=== PATIENT | male | born 1995 | race African-American/Black ===

== ENCOUNTER 2016-09-12 21:00 | Inpatient (IN) ==
[2016-09-12] MEDS ORDERED: ALUM/MAG/SIMETH/LIDO VISC 1:1 30 ML BOTTLE PO STA (23:25)
[2016-09-12] MEDS ORDERED: SODIUM CHLORIDE 0.9% 1,000 ML IV STA (23:25)
[2016-09-12] MEDS ORDERED: PANTOPRAZOLE 40 MG VIAL IV STA (23:25)
[2016-09-12] MEDS ORDERED: ONDANSETRON 4 MG/2 ML VIAL IV STA (23:25)
[2016-09-12 23:37] LABS: Basophils % 0.3 % (0.0-0.8); Hematocrit 48.9 VOL% (42.0-52.0); Immature Granulocytes % 0.8 %; Immature Granulocytes Absolute 0.12 #; Lymphocytes # 1.5 10*3/uL (1.4-4.0); Lymphocytes % 9.4 % (21.2-54.2); Mean Corpuscular HGB Conc 32.7 GM/DL (32-36); Mean Corpuscular Hemoglobin 27 PG (27-34); Mean Platelet Volume 12.3 FL (9.6-12.0); Monocytes # 0.6 10*3/uL (0.11-0.8); Monocytes % 3.8 % (1.7-12.7); Neutrophils # 13.7 10*3/uL (1.4-7.4); Neutrophils % 85.7 % (38.7-73.9); Platelet Count 184 T/CUMM (130-400); Red Blood Count 6.04 MC/CUMM (3.8-5.5); Red Cell Distribution Width 14.6 % (9.3-17.3); White Blood Count 15.9 T/CUMM (4-12)
[2016-09-12 23:50] LABS: Albumin 4.8 G/DL (3.4-5.0); Bilirubin,Total 0.9 MG/DL (0.2-1.0); Calcium 9.7 MG/DL (8.5-10.1); Osmolality,Calculated 280.3 MOS/KG (273-304); Potassium 3.9 MMOL/L (3.5-5.1); Total Protein 8.5 G/DL (6.4-8.3)
[2016-09-12] MEDS ORDERED: ALUM/MAG/SIMETH/LIDO VISC 1:1 30 ML BOTTLE PO ONE (23:55)
[2016-09-12] MEDS ORDERED: PANTOPRAZOLE 40 MG VIAL IV ONE (23:55)
[2016-09-12] MEDS ORDERED: ONDANSETRON 4 MG/2 ML VIAL ONE (23:55)
--- NOTE | 2016-09-13 00:18 | Emergency Department Note ---
Alan Mckee Brittany, am scribing for, and in the presence of, Marek Trent MD 23:34. Twan Mckee Charles R, MD, personally performed the services described in this documentation, ascribed by Melida Phillips in my presence, and it is both accurate and complete . Arrival - Arrival Chief Complaint: Nausea/Vomiting/Diarrhea Stated Complaint: [facility] ED Nursing Triage Note: c/o left side ABD pain and N/V/D since this morning. Mode of Arrival: Ambulatory Limitations: No Limitations Source: Patient, RN Notes Reviewed Time Seen by Provider: 09/12/16 22:17 - History of Present Illness HPI Narrative: Patient is a 21 y/o black male presenting to the ED with c/o LLQ abdominal pain with an onset of today. He notes having some associated N/V/D with this. He denies having an intake of a certain food that could've contributed to current symptoms. Patient denies having any associated hematochezia, melena, or hematemesis. He does report having some fever with this. He notes a history of Appendectomy and Cholecystectomy in 2013. He reports that abdominal pain at times radiates into his back and into his groin. He has no other complaint/pain in the ED at this time. Allergies/Adverse Reactions: Allergies Allergy/AdvReac Type Severity Reaction Status Date / Time No Known Allergies Allergy Verified 09/12/16 21:06 Review of System - Review of System 12 point system: reviewed and no additional remarkable complaints except as stated - Review of System Constitutional: Present: fever Gastrointestinal: Present: abdominal pain, nausea, vomiting, diarrhea Musculoskeletal: Present: back pain Medical,Surgical,& Family Hx - Medical History Cardio: No history of: Hypertension (Pt denies on 01/13/16) Neurology: No history of: Seizures Respiratory: No history of: Asthma Renal: No history of: Renal (Kidney) Cancer, Dialysis, Renal Failure, Renal Problems Genitourinary: History of: Kidney Stones (3 years ago) No history of: Bladder Problem, Prostate Problems, Recurring Urinary Tract Infections, Genitourinary Cancer, Problems Gastrointestinal: No history of: GERD Musculoskeletal: No history of: Amputation Hematology: No history of: Blood Transfusion Reaction - Surgical History Cardiac Surgeries: Patient Denies: Cardiac Catheterization Thoracic Surgeries: Patient denies;: Kidney (Renal Surgery), Lithotripsy, Nephrectomy, Organ Transplant, Lobectomy Neurologic Surgeries: Patient denies: Neurologic Surgery HEENT Surgeries: Patient denies: Thyroid Surgery Abdominal Surgeries: Surgical HX of: Abdominal Surgery (gallbladder), Appendectomy (2014), Cholecystectomy (2015), EGD (2015) Reproductive Surgeries: Patient denies;: Cystoscopy, Genitourinary Surgery, Prostate Surgery - Family History Family History: Reports;: Family Diabetes (great grandmother), Family Hypertension (a lot), Family Stroke (aunt, grandmother) Denies;: Family Anesthesia Reaction, Family Cancer, Family Heart Disease, Family Psychiatric Problems - Social History Smoking Status: Current every day smoker Frequency of Alcohol Use: None Type of Drug Use: None Exam Vital Signs: Vital Signs Temperature 98.2 F 09/12/16 22:18 Pulse Rate 94 H 09/12/16 22:18 Respiratory Rate 16 09/12/16 22:18 Blood Pressure 152/118 09/12/16 22:18 O2 Sat by Pulse Oximetry 98 09/12/16 21:02 - General General appearance: alert, in no apparent distress - Head Head exam: Present: atraumatic, normocephalic, normal inspection - Eye Eye exam: Present: normal appearance, PERRL, EOMI - ENT ENT exam: Present: normal exam, normal oropharynx - Neck Neck exam: Present: normal inspection, full ROM, trachea midline - Chest Chest inspection: Present: normal inspection, symmetric chest wall rise - Respiratory Respiratory exam: Present: normal lung sounds bilaterally. Absent: rales, rhonchi, wheezes - Cardiovascular Cardiovascular exam: Present: regular rate, normal rhythm, normal heart sounds. Absent: murmur, rubs, gallop - Abdominal Exam Abdominal exam: Present: soft, tenderness (LLQ), hyperactive bowel sounds. Absent: distention, normal bowel sounds - Extremities Exam Extremities exam: Present: normal inspection - Back Exam Back exam: Present: CVA tenderness (L). Absent: normal inspection - Neurological Exam Neurological exam: Present: alert, oriented X3, CN II-XII intact. Absent: motor sensory deficit - Psychiatric Psychiatric exam: Present: normal affect - Skin Skin exam: Present: warm. Absent: dry (clammy) Course - Reevaluation(s) Reevaluation #1: Patient has had some improvement after IV fluids and medication but still has some pain in his left lower quadrant CT shows colitis Time: :07 - Consultations Consultation #1: Hospitalist will admit patient Time: 01:07 Results - Labs CBC & BMP: 09/12/16 21:58 09/12/16 21:58 Lab Results: I have reviewed the patients labs Labs: Laboratory Tests 09/12/16 09/12/16 21:58 21:58 WBC 15.9 H RBC 6.04 H Hgb 16.0 Hct 48.9 MCV 81.0 L Plt Count 184 MPV 12.3 H Neut % (Auto) 85.7 H Lymph % (Auto) 9.4 L Neut # (Auto) 13.7 H Sodium 141 Potassium 3.9 Chloride 107 Carbon Dioxide 22 Anion Gap 15.9 H BUN 10 Creatinine 1.10 Glucose 116 H Total Protein 8.5 H Globulin 3.7 H Lipase 67.0 L Laboratory Tests 09/12/16 21:58 Urine Color Yellow Urine Appearance Slightly hazy Urine pH 6.0 Ur Specific [place] 1.028 Urine Protein 100 Urine Glucose (UA) Negative Urine Ketones 80 Urine Blood Negative Urine Nitrate Negative Urine Bilirubin Negative Urine Urobilinogen < 2.0 H Urine Leukocytes Negative Urine RBC 8 Urine WBC 3 Ur Squamous Epith Cells Occasional Calcium Oxalate Crystal Occasional Urine Bacteria Occasional Urine Mucus Many Disposition Clinical Impression: Nausea & vomiting, Abdominal pain, Dehydration, Gastroenteritis, Appetite loss , Leukocytosis, Colitis Case discussed with: patient, patient's family Disposition: Still a Patient Condition: Stable Time of Disposition: 01:08
[2016-09-13 00:43] LABS: Apearance,Urine Slightly Hazy (Clear); Bacteria,Urine Occasional /HPF (Few); Bilirubin,Urine Negative (Negative); Blood, Urine Negative (Negative); Calcium Oxalate Crystals,Urine Occasional /HPF (Few); Glucose,Urine (UA) Negative (Negative); Ketones,Urine 80 mg/dL (Negative); Mucus,Urine Many /LPF (Occasional); Nitrite,Urine Negative (Negative); Protein,Urine 100 MG/DL; RBC,Urine 8 /HPF (0-4); Squamous Epithelial Cell,Urine Occasional /HPF (0-10); Urine Color Yellow (Yellow); Urine Specific Gravity 1.028 (1.001-1.035); Urine Urobilinogen < 2.0 EU/DL (0.2-1.0); WBC,Urine 3 /HPF (0-6)
[2016-09-13] MEDS ORDERED: ONDANSETRON 4 MG/2 ML VIAL ONE (01:05)
[2016-09-13] MEDS ORDERED: HYDROmorphone 2 MG/1 ML VIAL ONE (01:06)
[2016-09-13] MEDS ORDERED: metroNIDAZOLE INJ 500 MG in PREMIX 1 EACH IV STA (01:09)
[2016-09-13] MEDS ORDERED: CIPROFLOXACIN INJ 400 MG in PREMIX 1 EACH IV STA (01:09)
[2016-09-13] MEDS ORDERED: HYDROmorphone 2 MG/1 ML VIAL IV STA (01:15)
[2016-09-13] MEDS ORDERED: ONDANSETRON 4 MG/2 ML VIAL IV STA (01:20)
[2016-09-13] MEDS ORDERED: metroNIDAZOLE 500 MG/100 ML PREMIX IV ONE (01:59)
[2016-09-13] MEDS ORDERED: CIPROFLOXACIN 400 MG/200 ML PREMIX IV ONE (01:59)
[2016-09-13] MEDS ORDERED: ACETAMINOPHEN 325 MG TABLET PO PRN (02:23)
--- NOTE | 2016-09-13 02:30 | Hospitalist History & Physical ---
Assessment and Plan - Time spent with patient Time spent discussing smoking cessation with patient: 3 to 10 minutes (1) Acute colitis Status: Acute Current Visit: Yes (2) Intractable nausea and vomiting Status: Acute Current Visit: Yes (3) Family history of Crohn's disease Status: Acute Assessment and plan: Plan: Admit for IV antibiotics-Cipro/Flagyl Obtain blood cultures GI consultation, will need colonoscopy with biopsy at some point Supportive care for pain, nausea, fever Current Visit: Yes History of Present Illness Chief complaint: Acute onset of left-sided abdominal pain, fever, intractable n/ v History of present illness: Mr. Sigala is a 21 year old male with no chronic medical problems who began having intractable nausea vomiting with left-sided abdominal pain earlier this afternoon. He rates it an 8 out of 10 at worst, nonradiating, relieved partially with pain medication in the ER. He states he had a normal bowel movement today, no blood. He did have fever around 101-102 at home, chills and sweats. He denies chest pain or shortness of breath. He does not take any home medications. He has had a cholecystectomy and appendectomy in the past. He also reports a strong family history of Crohn's disease, including his brother and father. His symptoms are constant and severe. Allergies Allergy/AdvReac Type Severity Reaction Status Date / Time No Known Allergies Allergy Verified 09/12/16 21:06 Medical,Surgical,& Family Hx - Medical History Cardio: No history of: Hypertension (Pt denies on 01/13/16) Neurology: No history of: Seizures Respiratory: No history of: Asthma Renal: No history of: Renal (Kidney) Cancer, Dialysis, Renal Failure, Renal Problems Genitourinary: History of: Kidney Stones (3 years ago) No history of: Bladder Problem, Prostate Problems, Recurring Urinary Tract Infections, Genitourinary Cancer, Problems Gastrointestinal: No history of: GERD Musculoskeletal: No history of: Amputation Hematology: No history of: Blood Transfusion Reaction - Surgical History Cardiac Surgeries: Patient Denies: Cardiac Catheterization Thoracic Surgeries: Patient denies;: Kidney (Renal Surgery), Lithotripsy, Nephrectomy, Organ Transplant, Lobectomy Neurologic Surgeries: Patient denies: Neurologic Surgery HEENT Surgeries: Patient denies: Thyroid Surgery Abdominal Surgeries: Surgical HX of: Abdominal Surgery (gallbladder), Appendectomy (2013), Cholecystectomy (2015), EGD (2015) Reproductive Surgeries: Patient denies;: Cystoscopy, Genitourinary Surgery, Prostate Surgery - Family History Family History: Reports;: Family Diabetes (great grandmother), Family Hypertension (a lot), Family Stroke (aunt, grandmother) Denies;: Family Anesthesia Reaction, Family Cancer, Family Heart Disease, Family Psychiatric Problems - Social History Smoking Status: Current every day smoker Have you smoked in the last 12 months: Yes Time spent discussing smoking cessation with patient: 3 to 10 minutes Frequency of Alcohol Use: None Type of Drug Use: None Marital Status: Unknown Functional capacity: independent ambulation Review of systems: A 12 point review of systems is negative except as specified in the HPI Exam - Constitutional Vitals: Period Temp Pulse Resp BP Sys/Milian Pulse Ox Last 24 Hr 98.2 F-98.2 F 94-94 16-16 152-152/118-118 98 Exam: EXAM: CONSTITUTIONAL: non toxic, NAD HEENT: NC, AT, OP benign, HOLA, EOMI CV: RRR no m/g/r RESP: clear B/L, no w/r/r GI: abd soft, + left-sided tenderness to palpation, no rebound, ND, +bowel sounds INTEGUMENTARY: no lesions or rash EXTREMITIES: no c/c/e NEURO: no focal deficits PSYCH: unremarkable, A/O x3 Results - Labs CBC & BMP: 09/12/16 21:58 09/12/16 21:58 Lab Results: I have reviewed the past 24 hour labs - Diagnostic Findings Procedure: CT Abdomen and Pelvis: image reviewed by me, report reviewed by me
[2016-09-13] MEDS: SODIUM CHLORIDE 0.9% 1,000 ML IV SCH ×2 (03:45→14:04)
[2016-09-13] MEDS ORDERED: PNEUMOCOCCAL VACCINE (23 VALENT) 0.5 ML VIAL IM ONE (04:21)
[2016-09-13] MEDS: MORPHINE 2 MG/1 ML SYRINGE IV PRN ×2 (06:04→20:48)
--- NOTE | 2016-09-13 07:05 | CT Report ---
CT of the abdomen and pelvis without intravenous or oral contrast. Indication: Generalized abdominal pain, nausea, and vomiting. Axial images were obtained with sagittal and coronal reconstructions. There is a preliminary report from [facility]. There is a comparison study from January 13, 2016. The heart is normal in size. The lung bases are clear. The liver is normal in size and density. The gallbladder has been removed. There is no biliary ductal dilatation. There is a 3 mm calculus at the midpole of the right kidney. No hydronephrosis. The urinary bladder is collapsed. No ureteral calculi are seen. The spleen is normal in size. There is no pancreatic enlargement. There is no free air or free fluid present within the peritoneal cavity. There is a suture line present at the cecum, not seen on the previous study. The appendix is not discretely identified. The bowel is not dilated. There is no bowel wall thickening. There is no free air or free fluid. There is no adenopathy. Impression: Right nephrolithiasis. No hydronephrosis. The CT exam was performed using one or more of the following dose reduction techniques: Automated exposure control, adjustment of the mA and/or kV according to patient size, or use of iterative reconstruction technique. PROCEDURE INTERPRETED AT [facility] DEPARTMENT OF RADIOLOGY Final Report Signed by: Dr. Blossom Rivas
[2016-09-13 07:27] LABS: Basophils % 0.2 % (0.0-0.8); Hematocrit 38.7 VOL% (42.0-52.0); Immature Granulocytes % 0.5 %; Immature Granulocytes Absolute 0.06 #; Lymphocytes # 1.6 10*3/uL (1.4-4.0); Lymphocytes % 12.1 % (21.2-54.2); Mean Corpuscular HGB Conc 32.6 GM/DL (32-36); Mean Corpuscular Hemoglobin 27 PG (27-34); Mean Platelet Volume 12.7 FL (9.6-12.0); Monocytes # 0.9 10*3/uL (0.11-0.8); Monocytes % 6.5 % (1.7-12.7); Neutrophils # 10.7 10*3/uL (1.4-7.4); Neutrophils % 80.7 % (38.7-73.9); Platelet Count 164 T/CUMM (130-400); Red Cell Distribution Width 14.5 % (9.3-17.3); White Blood Count 13.3 T/CUMM (4-12)
[2016-09-13 07:30] LABS: Hemoglobin 12.6 GM/DL (14.0-18.0); Red Blood Count 4.72 MC/CUMM (3.8-5.5)
--- NOTE | 2016-09-13 07:46 | XRay Report ---
Portable chest. Indication: Upper abdominal pain. Comparison: August 10, 2015. The heart and mediastinal contours are unremarkable. The pulmonary vasculature is normal. There is no consolidation, pneumothorax, or pleural effusion. The osseous structures are unremarkable. Impression: No abnormality is seen. PROCEDURE INTERPRETED AT [facility] DEPARTMENT OF RADIOLOGY Final Report Signed by: Dr. Blossom Rivas
[2016-09-13 07:49] LABS: Albumin 3.7 G/DL (3.4-5.0); Bilirubin,Total 0.7 MG/DL (0.2-1.0); Calcium 8.3 MG/DL (8.5-10.1); Magnesium 1.9 MG/DL (1.8-2.4); Osmolality,Calculated 277.4 MOS/KG (273-304); Total Protein 6.6 G/DL (6.4-8.3)
--- NOTE | 2016-09-13 08:14 | XRay Report ---
Two-view abdomen. Indication: Generalized abdominal pain. The heart is normal in size. The lung bases are clear. No free air. Surgical clips are present in the right upper quadrant. No intra-abdominal organomegaly. No abnormal calcifications. Very little bowel gas but the pattern is normal. The osseous structures are unremarkable. Impression: No acute abnormality. PROCEDURE INTERPRETED AT [facility] DEPARTMENT OF RADIOLOGY Final Report Signed by: Dr. Blossom Rivas
[2016-09-13] MEDS ORDERED: ENOXAPARIN 40 MG/0.4 ML SYRINGE SUBCUT SCH (09:00)
[2016-09-13] MEDS: metroNIDAZOLE INJ 500 MG in PREMIX 1 EACH IV SCH ×2 (09:27→18:55)
[2016-09-13] MEDS: CIPROFLOXACIN INJ 400 MG in PREMIX 1 EACH IV SCH (14:05)
--- NOTE | 2016-09-13 17:03 | Gastrointestinal Consult Note ---
Assessment and Plan (1) Left lower quadrant pain Status: Acute Assessment and plan: This patient may have a gastroenteritis versus colitis possibly associated with food poisoning, his white blood cell count is certainly elevated at 15.9. He has been placed on antibiotics which seemed to have helped a great deal and previously was demonstrating elevated temperature to 101/102 at home. While this might be food poisoning the patient has such a strong family history of Crohn's disease and is presenting at a relatively young age he would like to be ruled out for this before he goes home. I think it is reasonable to look at his colon and see if he is manifesting any evidence of Crohn's disease although I did point out to him this usually involves the right lower quadrant of the left lower quadrant. Crohn's disease can affect to in any part of the GI tract. It is reassuring the CT scan does not show inflammation in the TI, indeed it appears unremarkable for involvement of the colon as well. Current Visit: Yes (2) Nausea vomiting and diarrhea Status: Acute Assessment and plan: This may represent again food poisoning or gastroenteritis. I think be helpful to rule out Crohn's disease before the patient goes home considering his strong family history of same in his brother and his father, especially given his youth. We will proceed with colonoscopy tomorrow with potential biopsies, provided he can tolerate the prep tonight. Current Visit: Yes (3) Family history of Crohn's disease Status: Acute Assessment and plan: As mentioned above this is affected his father and brother. Current Visit: Yes History of Present Illness Chief complaint: Diarrhea and left mid/lower abdominal pain, fevers and chills History of present illness: Mr. Sigala is a 21 year old male who has a history of no chronic medical problems who developed nausea and vomiting and left sided abdominal pain this afternoon with a temperature that was measured as being 101-102 at home with about 7 bowel movements today that were nonbloody. He feels like he might have had some food poisoning but cannot recall exactly what might have done this. There is a family history of Crohn's disease in both father and a brother and he does remain concerned about this. The pain is not in his right lower quadrant however and his abdominal pain has subsided from earlier when it was up to an 8 out of 10, now minimally noticeable. The patient is playing [employer] on his faye console, and does not appear to be in any distress. He understands the risks and benefits of colonoscopy and wishes to proceed with this tomorrow. He is already had a cholecystectomy and appendectomy in the past. He has never had iritis or joint problems nor is he got any skin changes suggestive of inflammatory bowel disease. Allergies Allergy/AdvReac Type Severity Reaction Status Date / Time No Known Allergies Allergy Verified 09/12/16 21:06 Medical,Surgical,& Family Hx - Medical History Cardio: No history of: Hypertension (Pt denies on 01/13/16) Neurology: No history of: Seizures Respiratory: No history of: Asthma Renal: No history of: Renal (Kidney) Cancer, Dialysis, Renal Failure, Renal Problems Genitourinary: History of: Kidney Stones (3 years ago) No history of: Bladder Problem, Prostate Problems, Recurring Urinary Tract Infections, Genitourinary Cancer, Problems Gastrointestinal: No history of: GERD Musculoskeletal: History of: Back/Neck Problems ("back pain for a few weeks") No history of: Amputation Hematology: No history of: Blood Transfusion Reaction - Surgical History Cardiac Surgeries: Patient Denies: Cardiac Catheterization Thoracic Surgeries: Patient denies;: Kidney (Renal Surgery), Lithotripsy, Nephrectomy, Organ Transplant, Lobectomy Neurologic Surgeries: Patient denies: Neurologic Surgery HEENT Surgeries: Patient denies: Thyroid Surgery Abdominal Surgeries: Surgical HX of: Abdominal Surgery (gallbladder), Appendectomy (2013), Cholecystectomy (2015), EGD (2015) Reproductive Surgeries: Patient denies;: Cystoscopy, Genitourinary Surgery, Prostate Surgery - Family History Family History: Reports;: Family Diabetes (great grandmother), Family Hypertension (a lot), Family Stroke (aunt, grandmother) Denies;: Family Anesthesia Reaction, Family Cancer, Family Heart Disease, Family Psychiatric Problems - Social History Smoking Status: Current every day smoker Frequency of Alcohol Use: None Type of Drug Use: None Review of systems: Constitutional: The patient has had some fever, chills, nausea, and vomiting Eyes: Denies dry eyes, and scleral icterus HENT: Denies headaches Cardiovascular: Denies acute chest pain and claudication Respiratory: Denies shortness of breath, wheezing, and difficulty breathing, denies cough Gastrointestinal: As noted in the HPI Genitourinary: Denies dysuria and hematuria Neurologic: Denies vision loss, and loss of sensation Musculoskeletal: Denies joint swelling, joint stiffness, and muscular weakness Psychiatric: Denies depression and segundo symptoms Heme-Lymph: Denies easy bruising, lymph node enlargement or tenderness, night sweats, excessive bleeding Allergies-immunologic: Denies pruritus and rhinorrhea Exam - Constitutional Vitals: Period Temp Pulse Resp BP Sys/Milian Pulse Ox Last 24 Hr 98.4 F-99.4 F 76-100 16-20 125-144/60-82 96-100 General appearance: normal weight Exam: Constitutional: Well-developed, well-nourished, alert, and in no acute distress Head and face: Head: Normocephalic atraumatic Eyes: Conjunctiva without injection, no gross scleral icterus, pupils equal and round bilaterally Ears: Intact to conversation in both ears Nose: External appearance is normal, nares patent Mouth: Oral mucous membranes moist without erythema dentition noted to be without erosion Neck: Normal appearance, no masses or tenderness, trachea midline Thyroid: Gland midline and appropriate size for age Respiratory: Normal respiratory effort, clear to auscultation without wheezes, rhonchi or rales Cardiovascular: Regular rate and rhythm, normal S1, S2, the exam is without rubs, murmurs or gallops. Gastrointestinal: Mild tenderness to left lateral and left lower abdominal palpation, normal active bowel sounds, tone normal without rigidity or guarding , no masses present, no hepatomegaly, no spleen tip felt. No rectal exam obtained. Lymphatic: Neck without adenopathy, axilla without lymphadenopathy present Musculoskeletal: Right and left lower extremities without evidence of edema Skin and subcutaneous tissue: No rashes or ulcerations noted, normal skin turgor, digits and nails without clubbing/cyanosis/deformities. Neurologic: The patient is grossly oriented to person place and time, cranial nerves show tongue movements are normal with normal tongue extrusion midline, light touch sensation is intact. Psychiatric: No hallucinations or delusions are present, does not appear depressed Results - Labs CBC & BMP: 09/13/16 06:33 09/13/16 06:33
[2016-09-13] MEDS ORDERED: POLYETHYLENE GLYCOL POWDER 255 GM BOTTLE PO ONE (17:30)
[2016-09-13] MEDS: BISACODYL 5 MG TABLET PO SCH (17:41)
[2016-09-13] MEDS: ONDANSETRON 4 MG/2 ML VIAL IV PRN (20:47)
[2016-09-13] MEDS ORDERED: MAGNESIUM CITRATE 300 ML BOTTLE PO ONE (21:00)
[2016-09-13] MEDS: PROMETHAZINE 25 MG/1 ML VIAL IM PRN (21:42)
[2016-09-14] MEDS: SODIUM CHLORIDE 0.9% 1,000 ML IV SCH ×3 (00:28→10:13)
[2016-09-14] MEDS: CIPROFLOXACIN INJ 400 MG in PREMIX 1 EACH IV SCH (00:34)
[2016-09-14] MEDS: BISACODYL 5 MG TABLET PO SCH ×2 (00:34→09:42)
[2016-09-14] MEDS: metroNIDAZOLE INJ 500 MG in PREMIX 1 EACH IV SCH (01:56)
[2016-09-14 05:36] LABS: Basophils # 0.1 10*3/uL (0.0-0.2); Basophils % 0.4 % (0.0-0.8); Eosinophils % 0.1 % (0.00-10.9); Hemoglobin 13.2 GM/DL (14.0-18.0); Immature Granulocytes % 0.4 %; Immature Granulocytes Absolute 0.05 #; Lymphocytes # 3.3 10*3/uL (1.4-4.0); Lymphocytes % 28.5 % (21.2-54.2); Mean Corpuscular Hemoglobin 27 PG (27-34); Mean Corpuscular Volume 81.1 FL (87-102); Mean Platelet Volume 12.4 FL (9.6-12.0); Monocytes # 1.2 10*3/uL (0.11-0.8); Monocytes % 10.5 % (1.7-12.7); Neutrophils # 6.9 10*3/uL (1.4-7.4); Neutrophils % 60.1 % (38.7-73.9); Platelet Count 179 T/CUMM (130-400); Red Blood Count 4.93 MC/CUMM (3.8-5.5); Red Cell Distribution Width 14.7 % (9.3-17.3); White Blood Count 11.5 T/CUMM (4-12)
[2016-09-14] MEDS ORDERED: ONDANSETRON 4 MG/2 ML VIAL ONE (07:35)
[2016-09-14] MEDS: ONDANSETRON 4 MG/2 ML VIAL IV PRN ×3 (07:39→18:21)
--- NOTE | 2016-09-14 08:56 | Operative Note ---
Date of procedure: 09/14/16 Pre-op diagnosis: Colitis by diarrhea and WBC, family history of Crohn's Post-op diagnosis: other (Mild erythema noted throughout the colon which may have been underlying colitis versus simple prep artifact. No gross evidence of Crohn's disease or severe colitis. This may been food poisoning or gastroenteritis most likely.) Procedure: PROCEDURE: Colonoscopy with cold biopsy for pathology REFERRING PHYSICIAN: Dwight Vázquez MD INDICATIONS: Left lower quadrant pain, elevated white blood cell count, diarrhea, strong family history of Crohn's disease in patient's brother and father. The prior H&P was reviewed and interrim changes are as noted: No change from GI consultation yesterday ENDOSCOPIST: Kenton Erickson MD ENDOSCOPE: [employer] 100 System colonoscope COLON PREPARATION: 238 gm of PEG containing laxative and 1.9 liters of gatoraid/sports drink and dulcolax 15 mg q8 hours x 3 ASA CLASS: 2 EXAM: CV: regular rate and rhythm Respiratory: Clear without wheezes Abdominal: active bowel sounds Rectal: Good tone, no fissures or fistulas MEDICATION: Per nursing anesthesia protocol, see their notes PROCEDURE: After discussion of the potential risks and benefits of colonoscopy, the informed consent was obtained, from patient or health care surrogate. The patient was then placed in the left lateral decubitus position where sedation was achieved as noted above. Rectal examination was followed by insertion of the colonoscope. The colonoscope was passed under direct visualization to the cecum. Advancement was facilitated by insertion/withdrawl techniques, abdominal pressure and patient positioning. Once the cecal pole was reached, slow withdrawal was performed with the findings as noted below. The patient tolerated the procedure well and without complication. QUALITY OF PREP: Excellent WITHDRAWL TIME: 5 minutes 32 seconds BIOPSIES: Terminal ileum, ascending/cecum, descending/sigmoid PHOTOGRAPHS: Obtained FINDINGS: The musoca appeared with very mild erythema in the following regions : rectum, sigmoid colon, descending colon, splenic flexure, transverse colon, hepatic flexure, ascending colon and cecum. Position within the cecum was confirmed by ileocecal valve, appendiceal oriface, and the convergence of folds (crows foot). No polyp, mass or AVM was noted throughout the colon. Because of the mild erythema noted throughout the colon which may been prep artifact the colon was biopsied in the ascending/cecum, descending/sigmoid regions. No diverticulosis noted. Intubation of the TI was achieved x 5 cm with a small amount of lymphoid hyperplasia noted, biopsied to rule out quiescent Crohn's. IMPRESSION: Mild erythema noted throughout the colon which may have been underlying colitis versus simple prep artifact. No gross evidence of Crohn's disease or severe colitis. This may been food poisoning or gastroenteritis most likely. RECOMMENDATIONS: High fiber diet Repeat colonosocopy will be in 27 years when the patient hits age 48 [Follow up by phone for biopsy results in 1-2 weeks by phone -- would not start on any IBD drugs until the results are back from the biopsies. Suggest switching over to oral antibiotics today for probable discharge later today or tomorrow. High fiber diet Kenton Erickson MD COPY TO: Dwight Vázquez MD Anesthesia: MAC Surgeon / Physician: Kenton Erickson Estimated blood loss: minimal Specimens: other (Terminal ileum, cecum/ascending, descending/sigmoid) Condition: stable Disposition: post procedure unit ([facility]) Results - Labs CBC & BMP: 09/14/16 04:10 09/13/16 06:33 Discharge Plan - Discharge Medications No Action No Known Home Medications [No Known Home Medications] - Follow Up or Referral - Forms/Instructions
--- NOTE | 2016-09-14 09:02 | Gastrointestinal Progress Note ---
Assessment and Plan (1) Left lower quadrant pain Status: Acute Assessment and plan: This patient may have a gastroenteritis versus colitis possibly associated with food poisoning, his white blood cell count is certainly elevated at 15.9. He has been placed on antibiotics which seemed to have helped a great deal and previously was demonstrating elevated temperature to 101/102 at home. While this might be food poisoning the patient has such a strong family history of Crohn's disease and is presenting at a relatively young age he would like to be ruled out for this before he goes home. I think it is reasonable to look at his colon and see if he is manifesting any evidence of Crohn's disease although I did point out to him this usually involves the right lower quadrant of the left lower quadrant. Crohn's disease can affect to in any part of the GI tract. It is reassuring the CT scan does not show inflammation in the TI, indeed it appears unremarkable for involvement of the colon as well. 09/14/16--the findings a colonoscopy were as follows: Mild erythema noted throughout the colon which may have been underlying colitis versus simple prep artifact. No gross evidence of Crohn's disease or severe colitis. This may been food poisoning or gastroenteritis most likely. Although he has a strong family history of Crohn's disease in his brother and father it does not appear that he has developed this although biopsies are pending as he had some slight lymphoid hyperplasia and a small bowel. If he does adequately with the switch over to oral Cipro (have discontinued the metronidazole) he should be able to be discharged to home either later today or tomorrow if he tolerates his solid diet. I have told him not to be surprised if he does not have another bowel movement during his hospital admission. He was completely emptied by the colonoscopy. Current Visit: Yes (2) Nausea vomiting and diarrhea Status: Acute Assessment and plan: This may represent again food poisoning or gastroenteritis. I think be helpful to rule out Crohn's disease before the patient goes home considering his strong family history of same in his brother and his father, especially given his youth. We will proceed with colonoscopy tomorrow with potential biopsies, provided he can tolerate the prep tonight. 09/14/16--I suspect the patient had a food poisoning episode or gastroenteritis. There is no gross evidence of Crohn's disease on colonoscopy. If the patient tolerates the switch to oral antibiotics he could likely be discharged on these and I will follow-up his pathology as an outpatient. Current Visit: Yes (3) Family history of Crohn's disease Status: Acute Assessment and plan: As mentioned above this is affected his father and brother. 09/14/16--no gross evidence of Crohn's disease for this patient. Pathology confirmation pending. Current Visit: Yes Gastroenterology - PN: Subj Interval history: Patient feels better this morning, white count is down from 15.9-11.5 this time. No further fevers noted over the evening time, the patient tolerated his bowel prep well. Colonoscopy findings were as follows: Mild erythema noted throughout the colon which may have been underlying colitis versus simple prep artifact. No gross evidence of Crohn's disease or severe colitis. This may been food poisoning or gastroenteritis most likely. Exam (Progress Note) - Constitutional Vitals: Period Temp Pulse Resp BP Sys/Milian Pulse Ox Last 24 Hr 97.7 F-99.2 F 72-98 16-18 124-171/75-130 96-100 General appearance: no acute distress - Eye Eye exam: Present: EOMI Pupils: Present: HOLA - Respiratory Respiratory exam: Present: clear to auscultation bilaterally - Cardiovascular Cardiovascular exam: Present: regular rate and rhythm - GI/Abdominal GI/Abdominal exam: Present: normal bowel sounds, soft. Absent: distended, tenderness, rebound - Neurological Exam Neurological exam: Present: alert, oriented X3 - Psychiatric Psychiatric exam: Present: normal affect, normal mood - Skin Skin exam: Present: warm Results - Labs CBC & BMP: 09/14/16 04:10 09/13/16 06:33
[2016-09-14 09:04] LABS: Sedimentation Rate-Westergren 3 MM/HR (0-15)
--- NOTE | 2016-09-14 09:07 | Anesthesia ---
Anesthesia Post OP - Post Ansesthetic Evaluation Patient seen in post op: Yes Resp: within normal limits CV: within normal limits Mental: within normal limits Temp: within normal limits Neer-[id number]-[id number]: within normal limits Nausea and Vomiting: within normal limits Pain: within normal limits
[2016-09-14] MEDS: PROMETHAZINE 25 MG/1 ML VIAL IM PRN (09:54)
[2016-09-14] MEDS: CIPROFLOXACIN 500 MG TABLET PO SCH ×2 (09:55→20:48)
[2016-09-14] MEDS: MORPHINE 2 MG/1 ML SYRINGE IV PRN ×2 (09:57→15:10)
--- NOTE | 2016-09-14 15:38 | Hospitalist Progress Note ---
Assessment and Plan (1) Abdominal pain Status: Acute Assessment and plan: The patient continues to have discomfort of the abdomen, but there is no evidence of Crohn disease so far. I anticipate discharge home tomorrow on Cipro. Current Visit: No (2) Nausea & vomiting Status: Acute Current Visit: Yes Qualifiers: Vomiting type: cyclical vomiting Qualified Code(s): G43.A0 - Cyclical vomiting, not intractable Hospitalist: Subjective Interval history: The patient had a colonoscopy today. No evidence of Crohn disease was found. The patient is presently lying in bed and complaining of abdominal discomfort. When given the choice of home today or tomorrow he chose to go home tomorrow. Exam - Constitutional Vitals: Period Temp Pulse Resp BP Sys/Milian Pulse Ox Last 24 Hr 97.7 F-99.2 F 64-98 15-20 122-171/78-130 98-100 General appearance: mild distress - Respiratory Respiratory exam: Present: clear to auscultation bilaterally - Cardiovascular Cardiovascular exam: Present: regular rate and rhythm Results - Labs CBC & BMP: 09/14/16 04:10 09/13/16 06:33 Lab Results: I have reviewed the past 24 hour labs
[2016-09-15] MEDS: SODIUM CHLORIDE 0.9% 1,000 ML IV SCH ×2 (03:00→09:43)
[2016-09-15 08:05] VITALS: BP 145/81
[2016-09-15] MEDS: CIPROFLOXACIN 500 MG TABLET PO SCH (08:18)
[2016-09-15] MEDS: MORPHINE 2 MG/1 ML SYRINGE IV PRN (09:01)
[2016-09-15] MEDS: ONDANSETRON 4 MG/2 ML VIAL IV PRN (09:48)
--- NOTE | 2016-09-15 11:12 | Discharge Summary ---
Hospital Course - Hospital Course Hospital Course: The patient was admitted to the hospital with reoccurring abdominal discomfort with nausea. The patient had GI consultation for concerns about family who have Crohn disease. Dr. Erickson performed colonoscopy. No evidence of Crohn disease was found. The patient was treated with Cipro. The patient's symptoms have improved, and the patient also has some opiate seeking behaviors. The patient has reached maximum hospital benefit and is now discharged home to follow up with Dr. Erickson as outpatient. At the time of discharge, chest is clear and heart has regular rate and rhythm. [id number] discharge time 32 minutes. - Time spent with patient Time with patient DS: Greater than 30 minutes Diagnosis - Discharge Diagnosis (1) Abdominal pain Status: Chronic (2) Nausea & vomiting Status: Chronic Discharge Plan - Discharge Data Disposition: Disch To Home/Self Care Condition at Discharge: Stable Discharge Diet: advance to your usual diet Activity: resume usual activities as tolerated - Discharge Medications New HYDROcodone/ACETAMIN 7.5-325 [[place] 7.5-325] 1 tablet PO Q4H PRN #14 tablet PRN Reason: Pain Moderate (4-7) Ciprofloxacin Tab [Cipro Tab] 500 mg PO Q12HR #10 tablet Promethazine Supp [Phenergan Supp] 25 mg RECTAL Q6H #4 supp - Follow Up or Referral - Forms/Instructions Exam - Constitutional Vitals: Period Temp Pulse Resp BP Sys/Milian Pulse Ox Last 24 Hr 97.8 F-99.2 F 68-94 16-20 124-159/70-85 95-100 Discharge Results Labs on day of discharge: Preliminary micro results at discharge 09/13/16 02:47 Blood Culture - Preliminary Blood No growth at 1 day 09/13/16 02:47 Blood Culture - Preliminary Blood No growth at 1 day DS: Provider Date of admission: 09/13/16 02:24 Primary care physician: . No PCP Attending physician on admission: Dwight Vázquez MD Discharging clinician: Dwight Vázquez MD
--- NOTE | 2016-09-15 11:18 | Pathology Report from [facility] ---
ACCESSION # : [id number] PATIENT NAME : Issac Seals ORDERING DR : Kenton Erickson MD CLINICAL HX: Abdominal pain, nausea POST-OP DX: Same SPECIMEN INFO: #1 TI BX #2 Biopsy ascending colon #3 Biopsy descending colon GROSS DESCRIPTION: Received in formalin in three parts labeled:#1 "ISSAC SEALS & #1" are three pink taveras mucosal tissue fragments measuring collectively 0.7 x 0.5 cm submitted in cassette #1.#2 "ISSAC SEALS & #2" is a 0.9 x 0.3 cm aggregate of taveras mucosal tissue submitted in cassette #2.#3 "ISSAC SEALS & #3" are four taveras mucosal tissue fragments measuring collectively 1.4 x 0.3 cm submitted in cassette #3. DIAGNOSIS FOR ISSAC SEALS: #1 TI BIOPSY: Benign lymphoid aggregates, mild superficial chronic inflammation, normal villous architecture. No evidence of granulomas, parasites, tumor, or celiac disease.#2 BIOPSY ASCENDING COLON: Mild superficial chronic inflammation, focal superficial neutrophilic debris.#3 BIOPSY DESCENDING COLON: Mild superficial chronic inflammation, benign lymphoid aggregates, focal superficial neutrophilic debris.Comment: No evidence of inflammatory bowel disease, lymphocytic/collagenous colitis, ischemic changes, pseudomembrane, or malignancy. Favor self-limited process. SERVICE DATE: 09/14/2016 REPORT DATE: 09/15/2016 PATHOLOGIST: Jess Lopez
--- NOTE | 2016-09-15 11:49 | Gastrointestinal Progress Note ---
Assessment and Plan (1) Left lower quadrant pain Status: Acute Assessment and plan: This patient may have a gastroenteritis versus colitis possibly associated with food poisoning, his white blood cell count is certainly elevated at 15.9. He has been placed on antibiotics which seemed to have helped a great deal and previously was demonstrating elevated temperature to 101/102 at home. While this might be food poisoning the patient has such a strong family history of Crohn's disease and is presenting at a relatively young age he would like to be ruled out for this before he goes home. I think it is reasonable to look at his colon and see if he is manifesting any evidence of Crohn's disease although I did point out to him this usually involves the right lower quadrant of the left lower quadrant. Crohn's disease can affect to in any part of the GI tract. It is reassuring the CT scan does not show inflammation in the TI, indeed it appears unremarkable for involvement of the colon as well. 09/14/16--the findings a colonoscopy were as follows: Mild erythema noted throughout the colon which may have been underlying colitis versus simple prep artifact. No gross evidence of Crohn's disease or severe colitis. This may been food poisoning or gastroenteritis most likely. Although he has a strong family history of Crohn's disease in his brother and father it does not appear that he has developed this although biopsies are pending as he had some slight lymphoid hyperplasia and a small bowel. If he does adequately with the switch over to oral Cipro (have discontinued the metronidazole) he should be able to be discharged to home either later today or tomorrow if he tolerates his solid diet. I have told him not to be surprised if he does not have another bowel movement during his hospital admission. He was completely emptied by the colonoscopy. 09/15/16--the patient's biopsies have returned already from his colonoscopy done yesterday and these show a self-limited colitis. There is no gross evidence of Crohn's. The patient has been given some Cipro to take as an outpatient and also a small amount of Effie. He does feel bloated at times and I have suggested him that if he does not use the Effie this sensation may improve. His diarrhea is low-grade and I suspect this will go away in time even without antibiotics. Current Visit: Yes (2) Nausea vomiting and diarrhea Status: Acute Assessment and plan: This may represent again food poisoning or gastroenteritis. I think be helpful to rule out Crohn's disease before the patient goes home considering his strong family history of same in his brother and his father, especially given his youth. We will proceed with colonoscopy tomorrow with potential biopsies, provided he can tolerate the prep tonight. 09/14/16--I suspect the patient had a food poisoning episode or gastroenteritis. There is no gross evidence of Crohn's disease on colonoscopy. If the patient tolerates the switch to oral antibiotics he could likely be discharged on these and I will follow-up his pathology as an outpatient. 09/15/16--nausea and vomiting have improved quite a bit through the patient's hospital stay. Patient is ready for discharge at this time, he can follow-up with me as needed in the office. I suspect this is a self-limited colitis based on appearance of colonoscopy and pathology discovered. Current Visit: Yes (3) Family history of Crohn's disease Status: Acute Assessment and plan: As mentioned above this is affected his father and brother. 09/14/16--No gross evidence of Crohn's disease for this patient. Pathology confirmation pending. 09/15/16--No gross evidence of Crohn's disease seen on pathology. This appears to be a self-limited colitis. Current Visit: Yes Gastroenterology - PN: Subj Interval history: Patient is concerned about bloating that is occurring after having 1 stool in the morning time he feels that he can go to the bathroom the rest of the day and I have reminded him that he does have colitis and that the narcotics that he is using have a constipating/bloating effect and they might consider using Tylenol instead to avoid this sensation. Exam (Progress Note) - Constitutional Vitals: Period Temp Pulse Resp BP Sys/Milian Pulse Ox Last 24 Hr 97.8 F-99.2 F 68-81 16-20 124-145/70-81 95-100 General appearance: mild distress - Head Head exam: Present: normocephalic - Eye Eye exam: Present: EOMI - Respiratory Respiratory exam: Present: clear to auscultation bilaterally - Cardiovascular Cardiovascular exam: Present: regular rate and rhythm - GI/Abdominal GI/Abdominal exam: Present: normal bowel sounds, tenderness (Left lower abdomen) , soft. Absent: distended, guarding, rebound - Extremities Exam Extremities exam: Present: full ROM. Absent: edema - Neurological Exam Neurological exam: Present: alert, oriented X3, CN II-XII intact. Absent: motor sensory deficit - Psychiatric Psychiatric exam: Present: normal affect, normal mood - Skin Skin exam: Present: warm Results - Labs CBC & BMP: 09/14/16 04:10 09/13/16 06:33 Specialty Discharge - Follow Up or Referrals Follow up with: Kenton Erickson MD [Physician] - (call office as needed)
== END 2016-09-15 11:52 | disposition home or self-care (01) | DRG 392 ==
LOC: N.ED 21:00 → N.EDINP 09-13 02:23 → N.3E 09-13 03:30
PROVIDERS: ADMIT Internal Medicine; ATTEND Internal Medicine
PROC: COLONBX (2016-09-14 08:20)

== ENCOUNTER 2019-01-30 15:55 | Observation (INO) ==
[2019-01-30 17:01] LABS: Basophils % 0.3 % (0.0-0.8); Eosinophils % 0.1 % (0.00-10.9); Hemoglobin 13.6 GM/DL (14.0-18.0); Immature Granulocytes % 0.4 %; Immature Granulocytes Absolute 0.04 #; Lymphocytes # 0.9 10*3/uL (1.4-4.0); Lymphocytes % 9.4 % (21.2-54.2); Mean Corpuscular HGB Conc 32.4 GM/DL (32-36); Mean Corpuscular Volume 81.4 FL (87-102); Mean Platelet Volume 13.7 FL (9.6-12.0); Monocytes % 4.3 % (1.7-12.7); Neutrophils % 85.5 % (38.7-73.9); Platelet Count 141 T/CUMM (130-400); Red Blood Count 5.16 MC/CUMM (3.8-5.5); Red Cell Distribution Width 14.3 % (9.3-17.3); White Blood Count 9.8 T/CUMM (4-12)
[2019-01-30 17:17] LABS: Albumin 3.7 G/DL (3.4-5.0); Bilirubin,Total 0.9 MG/DL (0.2-1.0); Calcium 8.9 MG/DL (8.5-10.1); Osmolality,Calculated 277.3 MOS/KG (273-304); Total Protein 7.3 G/DL (6.4-8.3)
[2019-01-30 17:19] LABS: Barbiturates Screen,Urine Negative (Negative); Benzodiazepines Screen,Urine Negative (Negative); Cannabinoid Screen,Urine Positive (Negative); Opiate Screen,Urine Negative (Negative); Phencyclidine Screen,Urine Negative (Negative)
[2019-01-30 17:20] LABS: Apearance,Urine CLEAR (Clear); Bilirubin,Urine Negative (Negative); Blood, Urine Small mg/dL (Negative); Glucose,Urine (UA) Negative (Negative); Ketones,Urine 80 mg/dL (Negative); Mucus,Urine Occasional /LPF (Occasional); Nitrite,Urine Negative (Negative); Protein,Urine Negative; RBC,Urine 1 /HPF (0-4); Urine Color Yellow (Yellow); Urine Urobilinogen < 2.0 EU/DL (0.2-1.0); WBC,Urine <1 /HPF (0-6)
[2019-01-30] MEDS ORDERED: KETOROLAC 60 MG/2 ML VIAL IM STA (17:42)
[2019-01-30] MEDS ORDERED: PROMETHAZINE 25 MG/1 ML VIAL IM PRN (20:13)
[2019-01-30] MEDS ORDERED: HYOSCYAMINE 0.5 MG/1 ML AMP IV PRN (20:13)
[2019-01-30] MEDS ORDERED: BISACODYL 5 MG TABLET PO PRN (20:13)
[2019-01-30] MEDS ORDERED: ONDANSETRON 4 MG/2 ML VIAL IV PRN (20:13)
[2019-01-30] MEDS ORDERED: FAMOTIDINE 20 MG/2 ML VIAL IV ONE (20:13)
[2019-01-30] MEDS ORDERED: NICOTINE 21 MG/24 HR PATCH TRANSDERM PRN (20:13)
[2019-01-30] MEDS ORDERED: ACETAMINOPHEN 325 MG TABLET PO PRN (20:13)
[2019-01-30] MEDS ORDERED: SODIUM CHLORIDE 0.9% 1,000 ML IV SCH (20:30)
[2019-01-30] MEDS ORDERED: THIAMINE INJ 100 MG, FOLIC ACID INJ 1 MG, MULTIVITAMIN INJ 10 ML in SODIUM CHLORIDE 0.9... IV ONE (22:00)
[2019-01-30] MEDS: DICYCLOMINE 10 MG CAPSULE PO SCH (22:14)
[2019-01-31] MEDS ORDERED: cefTRIAXone 1,000 MG in SYRINGE 1 EACH IV SCH (06:00)
[2019-01-31] MEDS: DICYCLOMINE 10 MG CAPSULE PO SCH ×2 (08:28→14:42)
[2019-01-31 12:25] VITALS: BP 149/84
== END 2019-01-31 16:21 | disposition home or self-care (01) ==
LOC: EDUNIT# → EDBD → N.ED 15:55 → N.EDINP 15:55 → N.2E 21:00
PROVIDERS: ADMIT Internal Medicine Cardiovascular Disease; ATTEND Internal Medicine Cardiovascular Disease

== ENCOUNTER 2019-08-20 22:13 | Observation (INO) ==
[2019-08-20] MEDS ORDERED: DICYCLOMINE 20 MG/2 ML AMP IM ONE (22:26)
[2019-08-20] MEDS ORDERED: SODIUM CHLORIDE 0.9% 1,000 ML IV STA (22:26)
[2019-08-20] MEDS ORDERED: METOCLOPRAMIDE 10 MG/2 ML VIAL IV STA (22:26)
[2019-08-20] MEDS ORDERED: ONDANSETRON 4 MG/2 ML VIAL IV STA ×2 (22:26→23:28)
[2019-08-20] MEDS ORDERED: PANTOPRAZOLE 40 MG VIAL IV STA (22:26)
[2019-08-20 22:58] LABS: Basophils % 0.3 % (0.0-0.8); Eosinophils # 0.3 10*3/uL (0.0-0.87); Eosinophils % 2.1 % (0.00-10.9); Hemoglobin 14.7 GM/DL (14.0-18.0); Immature Granulocytes % 0.4 %; Immature Granulocytes Absolute 0.05 #; Lymphocytes # 1.6 10*3/uL (1.4-4.0); Lymphocytes % 12.9 % (21.2-54.2); Mean Corpuscular Volume 82.7 FL (87-102); Mean Platelet Volume 11.9 FL (9.6-12.0); Monocytes % 3.4 % (1.7-12.7); NRBC # 0.02 10*3/uL; Neutrophils % 80.9 % (38.7-73.9); Platelet Count 181 T/CUMM (130-400); Red Blood Count 5.56 MC/CUMM (3.8-5.5); Red Cell Distribution Width 14.5 % (9.3-17.3); White Blood Count 12.1 T/CUMM (4-12)
[2019-08-20 23:23] LABS: Albumin 4.1 G/DL (3.4-5.0); Bilirubin,Total 0.4 MG/DL (0.2-1.0); Osmolality,Calculated 276.5 MOS/KG (273-304)
[2019-08-20 23:45] LABS: Apearance,Urine CLEAR (Clear); Bilirubin,Urine Negative (Negative); Blood, Urine Negative (Negative); Glucose,Urine (UA) Negative (Negative); Ketones,Urine 20 mg/dL (Negative); Mucus,Urine Many /LPF (Occasional); Nitrite,Urine Negative (Negative); Protein,Urine Negative; RBC,Urine 6 /HPF (0-4); Squamous Epithelial Cell,Urine Occasional /HPF (0-10); Urine Color Yellow (Yellow); Urine Specific Gravity 1.028 (1.001-1.035); WBC,Urine <1 /HPF (0-6)
[2019-08-20] MEDS ORDERED: fentaNYL 100 MCG/2 ML VIAL IV STA (23:56)
[2019-08-20] MEDS ORDERED: PROMETHAZINE 25 MG/1 ML VIAL IM STA (23:58)
[2019-08-21 02:03] LABS: Risk Ratio 2.62; Thyroid Stimulating Hormone 0.905 uIU/ml (0.358-3.74); VLDL CHOLESTEROL 12.4 MG/DL
[2019-08-21] MEDS: ENOXAPARIN 40 MG/0.4 ML SYRINGE SUBCUT SCH (04:11)
[2019-08-21] MEDS: ONDANSETRON 4 MG/2 ML VIAL IV PRN ×3 (04:12→13:32)
[2019-08-21] MEDS: SODIUM CHLORIDE 0.9% 1,000 ML IV SCH ×3 (04:14→22:17)
[2019-08-21] MEDS ORDERED: INFLUENZA VIRUS VACCINE 0.5 ML SYRINGE IM ONE (05:36)
[2019-08-21 06:50] LABS: Basophils % 0.1 % (0.0-0.8); Hematocrit 42.5 VOL% (42.0-52.0); Hemoglobin 13.6 GM/DL (14.0-18.0); Immature Granulocytes % 0.5 %; Immature Granulocytes Absolute 0.05 #; Lymphocytes # 0.8 10*3/uL (1.4-4.0); Lymphocytes % 8.2 % (21.2-54.2); Mean Corpuscular Volume 81.6 FL (87-102); Mean Platelet Volume 12.4 FL (9.6-12.0); Monocytes % 2.8 % (1.7-12.7); Neutrophils % 88.4 % (38.7-73.9); Platelet Count 182 T/CUMM (130-400); Red Blood Count 5.21 MC/CUMM (3.8-5.5); Red Cell Distribution Width 14.6 % (9.3-17.3); White Blood Count 10.2 T/CUMM (4-12)
[2019-08-21 07:19] LABS: Calcium 8.9 MG/DL (8.5-10.1); Osmolality,Calculated 277.4 MOS/KG (273-304)
[2019-08-21] MEDS: PANTOPRAZOLE 40 MG TABLET PO SCH (09:37)
[2019-08-21] MEDS: metroNIDAZOLE INJ 500 MG in PREMIX 1 EACH IV SCH ×2 (16:49→23:18)
[2019-08-21] MEDS: CIPROFLOXACIN INJ 400 MG in PREMIX 1 EACH IV SCH (17:44)
[2019-08-22] MEDS: ENOXAPARIN 40 MG/0.4 ML SYRINGE SUBCUT SCH (04:14)
[2019-08-22] MEDS: CIPROFLOXACIN INJ 400 MG in PREMIX 1 EACH IV SCH ×2 (04:15→18:23)
[2019-08-22] MEDS: SODIUM CHLORIDE 0.9% 1,000 ML IV SCH ×3 (04:19→23:12)
[2019-08-22 06:29] LABS: Basophils % 0.3 % (0.0-0.8); Eosinophils # 0.1 10*3/uL (0.0-0.87); Eosinophils % 0.8 % (0.00-10.9); Hematocrit 43.3 VOL% (42.0-52.0); Hemoglobin 13.7 GM/DL (14.0-18.0); Immature Granulocytes % 0.6 %; Immature Granulocytes Absolute 0.05 #; Lymphocytes # 2.9 10*3/uL (1.4-4.0); Lymphocytes % 31.8 % (21.2-54.2); Mean Corpuscular HGB Conc 31.6 GM/DL (32-36); Mean Corpuscular Volume 82.3 FL (87-102); Mean Platelet Volume 11.9 FL (9.6-12.0); Monocytes % 10.1 % (1.7-12.7); Neutrophils % 56.4 % (38.7-73.9); Platelet Count 174 T/CUMM (130-400); Red Blood Count 5.26 MC/CUMM (3.8-5.5); Red Cell Distribution Width 14.6 % (9.3-17.3); White Blood Count 9.1 T/CUMM (4-12)
[2019-08-22 06:59] LABS: Calcium 8.5 MG/DL (8.5-10.1); Osmolality,Calculated 273.7 MOS/KG (273-304)
[2019-08-22] MEDS: PANTOPRAZOLE 40 MG TABLET PO SCH (11:24)
[2019-08-22] MEDS: metroNIDAZOLE INJ 500 MG in PREMIX 1 EACH IV SCH ×3 (11:25→23:11)
[2019-08-22] MEDS: ONDANSETRON 4 MG/2 ML VIAL IV PRN (20:32)
[2019-08-22] MEDS ORDERED: HYDROmorphone 2 MG/1 ML VIAL IV ONE (21:08)
[2019-08-23] MEDS: ENOXAPARIN 40 MG/0.4 ML SYRINGE SUBCUT SCH (02:01)
[2019-08-23] MEDS: ONDANSETRON 4 MG/2 ML VIAL IV PRN ×2 (02:01→08:34)
[2019-08-23] MEDS: CIPROFLOXACIN INJ 400 MG in PREMIX 1 EACH IV SCH ×2 (03:29→15:27)
[2019-08-23] MEDS: ACETAMINOPHEN 325 MG TABLET PO PRN ×2 (03:30→07:07)
[2019-08-23] MEDS: metroNIDAZOLE INJ 500 MG in PREMIX 1 EACH IV SCH ×3 (07:07→23:44)
[2019-08-23] MEDS ORDERED: ONDANSETRON 4 MG/2 ML VIAL IV ONE (09:36)
[2019-08-23] MEDS ORDERED: MORPHINE 4 MG/1 ML VIAL IV ONE (09:36)
[2019-08-23] MEDS: SODIUM CHLORIDE 0.9% 1,000 ML IV SCH ×2 (11:01→19:15)
[2019-08-23] MEDS: PANTOPRAZOLE 40 MG TABLET PO SCH (11:03)
[2019-08-23] MEDS ORDERED: KETOROLAC 10 MG TABLET PO PRN (12:15)
[2019-08-24] MEDS: ENOXAPARIN 40 MG/0.4 ML SYRINGE SUBCUT SCH (02:29)
[2019-08-24] MEDS: SODIUM CHLORIDE 0.9% 1,000 ML IV SCH ×3 (02:36→18:00)
[2019-08-24] MEDS: CIPROFLOXACIN INJ 400 MG in PREMIX 1 EACH IV SCH (03:00)
[2019-08-24 05:26] LABS: Basophils # 0.1 10*3/uL (0.0-0.2); Basophils % 0.6 % (0.0-0.8); Eosinophils # 0.1 10*3/uL (0.0-0.87); Eosinophils % 1.1 % (0.00-10.9); Hematocrit 45.3 VOL% (42.0-52.0); Hemoglobin 14.6 GM/DL (14.0-18.0); Immature Granulocytes % 0.4 %; Immature Granulocytes Absolute 0.04 #; Lymphocytes # 5.1 10*3/uL (1.4-4.0); Mean Corpuscular HGB Conc 32.2 GM/DL (32-36); Mean Corpuscular Volume 80.9 FL (87-102); Mean Platelet Volume 12.8 FL (9.6-12.0); Monocytes % 10.2 % (1.7-12.7); Neutrophils % 37.7 % (38.7-73.9); Platelet Count 181 T/CUMM (130-400); Red Cell Distribution Width 14.1 % (9.3-17.3); White Blood Count 10.2 T/CUMM (4-12)
[2019-08-24 05:45] LABS: Calcium 8.6 MG/DL (8.5-10.1); Osmolality,Calculated 276.4 MOS/KG (273-304)
[2019-08-24 06:22] LABS: Anisocytosis 1+; Lymphocytes 39 % (20-55); Platelet Estimate Adequate; Segmented Neutrophils 57 % (50-85); Total Cells Counted 100
[2019-08-24] MEDS: metroNIDAZOLE INJ 500 MG in PREMIX 1 EACH IV SCH (06:43)
[2019-08-24] MEDS: PANTOPRAZOLE 40 MG TABLET PO SCH (09:29)
[2019-08-24 12:04] VITALS: BP 160/96
[2019-08-24] MEDS ORDERED: metroNIDAZOLE 500 MG TABLET PO SCH (14:00)
[2019-08-24] MEDS ORDERED: CIPROFLOXACIN 500 MG TABLET PO SCH (21:00)
== END 2019-08-24 17:01 | disposition home or self-care (01) ==
LOC: EDBD → EDUNIT# → N.EDINP 22:13 → N.ED 22:13 → N.5E 08-21 01:52
PROVIDERS: ADMIT Internal Medicine; ATTEND Internal Medicine

== ENCOUNTER 2020-01-04 21:37 | Observation (INO) ==
[2020-01-04] MEDS ORDERED: SODIUM CHLORIDE 0.9% 1,000 ML IV STA (22:26)
[2020-01-04] MEDS ORDERED: MORPHINE 4 MG/1 ML VIAL IV STA (22:26)
[2020-01-04] MEDS ORDERED: ONDANSETRON 4 MG/2 ML VIAL IV STA (22:26)
[2020-01-04 22:40] LABS: Basophils # 0.1 10*3/uL (0.0-0.2); Basophils % 0.3 % (0.0-0.8); Hematocrit 47.3 VOL% (42.0-52.0); Hemoglobin 15.6 GM/DL (14.0-18.0); Immature Granulocytes % 0.7 %; Immature Granulocytes Absolute 0.15 #; Lymphocytes # 1.3 10*3/uL (1.4-4.0); Lymphocytes % 5.8 % (21.2-54.2); Mean Corpuscular Volume 80.9 FL (87-102); Mean Platelet Volume 12.6 FL (9.6-12.0); Monocytes % 4.3 % (1.7-12.7); Neutrophils % 88.9 % (38.7-73.9); Platelet Count 180 T/CUMM (130-400); Red Blood Count 5.85 MC/CUMM (3.8-5.5); Red Cell Distribution Width 14.6 % (9.3-17.3); White Blood Count 22.8 T/CUMM (4-12)
[2020-01-04 22:58] LABS: Albumin 4.4 G/DL (3.4-5.0); Bilirubin,Total 0.7 MG/DL (0.2-1.0); Calcium 9.5 MG/DL (8.5-10.1); Lymphocytes 9 % (20-55); Osmolality,Calculated 277.5 MOS/KG (273-304); Platelet Estimate Adequate; Segmented Neutrophils 89 % (50-85); Total Cells Counted 100; Total Protein 8.7 G/DL (6.4-8.3)
[2020-01-05 00:13] LABS: Apearance,Urine CLEAR (Clear); Bilirubin,Urine Negative (Negative); Blood, Urine Negative (Negative); Glucose,Urine (UA) Negative (Negative); Ketones,Urine 20 mg/dL (Negative); Mucus,Urine Many /LPF (Occasional); Nitrite,Urine Negative (Negative); Protein,Urine 30 MG/DL; RBC,Urine 10 /HPF (0-4); Urine Color Amber (Yellow); Urine Specific Gravity 1.029 (1.001-1.035); WBC,Urine 1 /HPF (0-6)
[2020-01-05] MEDS ORDERED: PROMETHAZINE INJ 12.5 MG in SODIUM CHLORIDE 0.9% 50 ML IV STA (00:15)
[2020-01-05] MEDS ORDERED: PANTOPRAZOLE 40 MG VIAL IV STA (00:16)
[2020-01-05 00:21] LABS: Barbiturates Screen,Urine Negative (Negative); Benzodiazepines Screen,Urine Negative (Negative); Cannabinoid Screen,Urine Positive (Negative); Opiate Screen,Urine Negative (Negative); Phencyclidine Screen,Urine Negative (Negative)
[2020-01-05] MEDS ORDERED: PROMETHAZINE 25 MG/1 ML VIAL ONE (00:42)
[2020-01-05] MEDS ORDERED: PROMETHAZINE 25 MG/1 ML VIAL IM PRN (01:33)
[2020-01-05] MEDS ORDERED: DEXTROSE 50% 25 GM/50 ML VIAL IV PRN (01:33)
[2020-01-05] MEDS ORDERED: GLUCAGON 1 MG VIAL IM PRN (01:33)
[2020-01-05] MEDS ORDERED: KETOROLAC 30 MG/1 ML VIAL IV STA (01:56)
[2020-01-05] MEDS ORDERED: ENOXAPARIN 40 MG/0.4 ML SYRINGE SUBCUT SCH (02:00)
[2020-01-05] MEDS: ONDANSETRON 4 MG/2 ML VIAL IV PRN ×2 (02:12→05:47)
[2020-01-05] MEDS: SODIUM CHLORIDE 0.9% 1,000 ML IV SCH ×2 (02:13→10:28)
[2020-01-05] MEDS: MORPHINE 4 MG/1 ML VIAL IV PRN ×2 (03:35→09:07)
[2020-01-05 07:56] LABS: Basophils % 0.2 % (0.0-0.8); Hematocrit 42.4 VOL% (42.0-52.0); Hemoglobin 13.8 GM/DL (14.0-18.0); Immature Granulocytes % 0.6 %; Immature Granulocytes Absolute 0.12 #; Lymphocytes # 1.4 10*3/uL (1.4-4.0); Lymphocytes % 7.5 % (21.2-54.2); Mean Corpuscular HGB Conc 32.5 GM/DL (32-36); Mean Corpuscular Volume 81.2 FL (87-102); Mean Platelet Volume 11.6 FL (9.6-12.0); Monocytes % 3.8 % (1.7-12.7); Neutrophils % 87.9 % (38.7-73.9); Platelet Count 164 T/CUMM (130-400); Red Blood Count 5.22 MC/CUMM (3.8-5.5); Red Cell Distribution Width 14.5 % (9.3-17.3); White Blood Count 18.9 T/CUMM (4-12)
[2020-01-05 08:00] LABS: Albumin 3.9 G/DL (3.4-5.0); Bilirubin,Total 0.8 MG/DL (0.2-1.0); Calcium 8.8 MG/DL (8.5-10.1); Osmolality,Calculated 275.7 MOS/KG (273-304)
[2020-01-05] MEDS ORDERED: PANTOPRAZOLE 40 MG VIAL IV SCH (09:00)
[2020-01-05] MEDS ORDERED: amLODIPine 5 MG TABLET PO SCH (09:00)
[2020-01-05] MEDS ORDERED: PANTOPRAZOLE 40 MG TABLET PO SCH (09:00)
[2020-01-05] MEDS ORDERED: ALBUTEROL 2.5 MG/3 ML NEB RESP TX PRN (09:31)
[2020-01-05 16:14] VITALS: BP 142/75
== END 2020-01-05 17:15 | disposition home health service (06) ==
LOC: N.ED 21:37 → N.EDINP 21:37 → N.TELES 01-05 02:15
PROVIDERS: ADMIT Internal Medicine; ATTEND Internal Medicine

== ENCOUNTER 2020-12-23 09:12 | Observation (INO) ==
[2020-12-23] MEDS ORDERED: ONDANSETRON 4 MG/2 ML VIAL ONE (10:24)
[2020-12-23] MEDS ORDERED: PROMETHAZINE 25 MG/1 ML VIAL ONE ×2 (10:30→14:21)
[2020-12-23] MEDS ORDERED: PANTOPRAZOLE 40 MG VIAL IV ONE (10:30)
[2020-12-23] MEDS ORDERED: PROMETHAZINE INJ 25 MG in SODIUM CHLORIDE 0.9% 50 ML IV STA (10:42)
[2020-12-23] MEDS ORDERED: SODIUM CHLORIDE 0.9% 1,000 ML IV STA ×2 (10:43→14:07)
[2020-12-23] MEDS ORDERED: PANTOPRAZOLE 40 MG VIAL IV STA (10:43)
[2020-12-23] MEDS ORDERED: MORPHINE 2 MG/1 ML SYRINGE IV STA ×2 (10:46→13:03)
[2020-12-23 10:47] LABS: Basophils # 0.1 10*3/uL (0.0-0.2); Basophils % 0.5 % (0.0-0.8); Eosinophils # 0.1 10*3/uL (0.0-0.87); Eosinophils % 0.4 % (0.00-10.9); Hematocrit 46.2 VOL% (42.0-52.0); Hemoglobin 14.9 GM/DL (14.0-18.0); Immature Granulocytes % 0.5 %; Immature Granulocytes Absolute 0.07 #; Lymphocytes # 1.5 10*3/uL (1.4-4.0); Lymphocytes % 11.5 % (21.2-54.2); Mean Corpuscular HGB Conc 32.3 GM/DL (32-36); Mean Corpuscular Volume 80.9 FL (87-102); Mean Platelet Volume 12.2 FL (9.6-12.0); Neutrophils % 84.1 % (38.7-73.9); Platelet Count 165 T/CUMM (130-400); Red Blood Count 5.71 MC/CUMM (3.8-5.5); Red Cell Distribution Width 14.7 % (9.3-17.3); White Blood Count 13.3 T/CUMM (4-12)
[2020-12-23] MEDS ORDERED: MORPHINE 2 MG/1 ML SYRINGE ONE (10:50)
[2020-12-23 11:00] LABS: Bilirubin,Urine Negative (Negative); Blood, Urine Negative (Negative); Calcium Oxalate Crystals,Urine Occasional /HPF (Few); Glucose,Urine (UA) Negative (Negative); Ketones,Urine Negative (Negative); Mucus,Urine Many /LPF (Occasional); Nitrite,Urine Negative (Negative); Protein,Urine 30 MG/DL; RBC,Urine 5 /HPF (0-4); Urine Appearance Slightly Hazy (Clear); Urine Color Yellow (Yellow); Urine Specific Gravity 1.024 (1.001-1.035); Urine Urobilinogen < 2.0 EU/DL (0.2-1.0)
[2020-12-23 11:04] LABS: Albumin 4.2 G/DL (3.4-5.0); Bilirubin,Total 0.6 MG/DL (0.20-1.00); Calcium 9.2 MG/DL (8.5-10.1); Osmolality,Calculated 279.3 MOS/KG (273-304); Potassium 3.7 MMOL/L (3.5-5.1); Total Protein 7.8 G/DL (6.4-8.2)
[2020-12-23] MEDS ORDERED: ALUM/MAG/SIMETH/LIDO VISC 1:1 30 ML BOTTLE PO STA (13:03)
[2020-12-23] MEDS ORDERED: ONDANSETRON 4 MG/2 ML VIAL IV STA (13:03)
[2020-12-23] MEDS ORDERED: PROCHLORPERAZINE 10 MG/2 ML VIAL IV PRN (14:00)
[2020-12-23] MEDS ORDERED: METOCLOPRAMIDE 10 MG/2 ML VIAL IV STA (14:28)
[2020-12-23] MEDS ORDERED: GLUCAGON 1 MG VIAL IM PRN (14:30)
[2020-12-23] MEDS ORDERED: DEXTROSE 50% 25 GM/50 ML VIAL IV PRN (14:30)
[2020-12-23] MEDS ORDERED: hydrALAZINE 20 MG/1 ML VIAL IV PRN (14:36)
[2020-12-23] MEDS ORDERED: PROMETHAZINE 25 MG/1 ML VIAL IM PRN (14:36)
[2020-12-23] MEDS ORDERED: ACETAMINOPHEN 325 MG TABLET PO PRN (14:36)
[2020-12-23 15:54] LABS: Barbiturates Screen,Urine Negative (Negative); Benzodiazepines Screen,Urine Negative (Negative); Cannabinoid Screen,Urine Positive (Negative); Opiate Screen,Urine Negative (Negative); Phencyclidine Screen,Urine Negative (Negative)
[2020-12-23] MEDS ORDERED: MORPHINE 2 MG/1 ML SYRINGE IV PRN (15:54)
[2020-12-23] MEDS: SODIUM CHLORIDE 0.9% 1,000 ML IV SCH (16:36)
[2020-12-23] MEDS ORDERED: LORazepam 2 MG/1 ML VIAL IV PRN (18:24)
[2020-12-23] MEDS ORDERED: DIAZEPAM 5 MG TABLET PO PRN (18:24)
[2020-12-23] MEDS: PANTOPRAZOLE 40 MG VIAL IV SCH (20:19)
[2020-12-23] MEDS: ONDANSETRON 4 MG/2 ML VIAL IV PRN (20:20)
[2020-12-23] MEDS ORDERED: HYDROmorphone 2 MG/1 ML VIAL IV PRN (21:15)
[2020-12-24 02:09] LABS: Basophils % 0.2 % (0.0-0.8); Hematocrit 41.2 VOL% (42.0-52.0); Hemoglobin 13.3 GM/DL (14.0-18.0); Immature Granulocytes % 0.5 %; Immature Granulocytes Absolute 0.06 #; Lymphocytes # 1.9 10*3/uL (1.4-4.0); Lymphocytes % 15.1 % (21.2-54.2); Mean Corpuscular HGB Conc 32.3 GM/DL (32-36); Mean Corpuscular Volume 81.1 FL (87-102); Mean Platelet Volume 11.8 FL (9.6-12.0); Monocytes % 7.6 % (1.7-12.7); Neutrophils % 76.6 % (38.7-73.9); Platelet Count 132 T/CUMM (130-400); Red Blood Count 5.08 MC/CUMM (3.8-5.5); Red Cell Distribution Width 14.9 % (9.3-17.3); White Blood Count 12.6 T/CUMM (4-12)
[2020-12-24 02:31] LABS: Calcium 8.5 MG/DL (8.5-10.1); Osmolality,Calculated 274.5 MOS/KG (273-304); Potassium 4.1 MMOL/L (3.5-5.1)
[2020-12-24 03:40] LABS: Lymphocytes 19 % (20-55); Segmented Neutrophils 76 % (50-85); Total Cells Counted 100
[2020-12-24] MEDS: SODIUM CHLORIDE 0.9% 1,000 ML IV SCH ×3 (06:31→20:40)
[2020-12-24] MEDS: NICOTINE 21 MG/24 HR PATCH TRANSDERM SCH (09:05)
[2020-12-24] MEDS: PANTOPRAZOLE 40 MG VIAL IV SCH ×2 (14:11→20:40)
[2020-12-24] MEDS: HYDROmorphone 2 MG/1 ML VIAL IV PRN ×2 (14:11→17:14)
[2020-12-25] MEDS: HYDROmorphone 2 MG/1 ML VIAL IV PRN (05:20)
[2020-12-25] MEDS: SODIUM CHLORIDE 0.9% 1,000 ML IV SCH (05:33)
[2020-12-25] MEDS: ONDANSETRON 4 MG/2 ML VIAL IV PRN (05:35)
[2020-12-25 05:53] LABS: Basophils # 0.1 10*3/uL (0.0-0.2); Basophils % 0.5 % (0.0-0.8); Eosinophils # 0.1 10*3/uL (0.0-0.87); Eosinophils % 0.5 % (0.00-10.9); Hematocrit 41.7 VOL% (42.0-52.0); Hemoglobin 13.3 GM/DL (14.0-18.0); Immature Granulocytes % 0.3 %; Immature Granulocytes Absolute 0.03 #; Lymphocytes # 4.1 10*3/uL (1.4-4.0); Lymphocytes % 39.6 % (21.2-54.2); Mean Corpuscular HGB Conc 31.9 GM/DL (32-36); Mean Corpuscular Volume 81.1 FL (87-102); Mean Platelet Volume 12.6 FL (9.6-12.0); Monocytes % 10.2 % (1.7-12.7); Neutrophils % 48.9 % (38.7-73.9); Platelet Count 141 T/CUMM (130-400); Red Blood Count 5.14 MC/CUMM (3.8-5.5); Red Cell Distribution Width 14.8 % (9.3-17.3); White Blood Count 10.4 T/CUMM (4-12)
[2020-12-25 06:22] LABS: Calcium 8.7 MG/DL (8.5-10.1); Osmolality,Calculated 271.7 MOS/KG (273-304); Potassium 4.1 MMOL/L (3.5-5.1)
[2020-12-25] MEDS ORDERED: ONDANSETRON 4 MG TABLET PO PRN (08:09)
[2020-12-25] MEDS ORDERED: traMADol 50 MG TABLET PO PRN (08:11)
[2020-12-25] MEDS: NICOTINE 21 MG/24 HR PATCH TRANSDERM SCH ×2 (08:39→09:17)
[2020-12-25] MEDS ORDERED: PANTOPRAZOLE 40 MG TABLET PO SCH (09:00)
[2020-12-25 12:11] VITALS: BP 157/90
== END 2020-12-25 12:03 | disposition home or self-care (01) ==
LOC: SUATTDRO → N.ED 09:12 → N.EDINP 14:36 → INTOOBSV 14:36 → SUATTDRO 14:36 → N.3E 18:58
PROVIDERS: ADMIT Internal Medicine; ATTEND Internal Medicine